=== PATIENT | male | born 1995 ===

== ENCOUNTER 2019-02-28 07:25 | Emergency (ER) | payer OTHER ==
[2019-02-28 07:31] VITALS: BMI 24.2
[2019-02-28 07:32] VITALS: BP 132/84
[2019-02-28] MEDS ORDERED: Sodium Chloride 0.9% 1,000 ML IV STA (08:13)
[2019-02-28 08:37] LABS: BASO % 0.5 % (0.0-2.0); EOS # 0.1 K/uL (0.0-0.7); EOS % 0.8 % (0.0-4.0); HEMOGLOBIN 15.6 g/dL (12.0-18.0); LYMPH # 2.1 K/uL (1.0-4.3); LYMPH % 20.4 % (20.0-40.0); MEAN CELL VOLUME 87.8 fl (80.0-94.0); MEAN CORPUSCULAR HEMOGLOBIN 30.6 pg (27.0-31.0); MEAN CORPUSCULAR HGB CONC 34.9 g/dL (33.0-37.0); MEAN PLATELET VOLUME 8.9 fl (7.2-11.7); MONO # 0.7 K/uL (0.0-0.8); NEUT # 7.2 K/uL (1.8-7.0); NEUT % 71.3 % (50.0-75.0); RBC 5.09 Mil/uL (4.40-5.90); RED CELL DISTRIBUTION WIDTH 13.4 % (11.5-14.5); WHITE BLOOD COUNT 10.1 K/uL (4.8-10.8)
--- NOTE | 2019-02-28 08:46 | ED PDOC ---
HPI: Male Pain Time Seen by Provider: 02/28/19 07:45 Chief Complaint (Nursing): Male Genitourinary Chief Complaint (Provider): Male Genitourinary History Per: Patient History/Exam Limitations: no limitations Onset/Duration Of Symptoms: Days Current Symptoms Are (Timing): Still Present Additional Complaint(s): Patient is a 23 y/o male with no significant PMHx who presents to the ED for evaluation of difficulty urinating. Patient claims his urine was bright red a co uple days ago that immediately resolved. However, patient states he woke up today and was straining and having pain while urinating. Patient described his urine as red but reports there were no stones, clots, or tissue present. Patient also complains of abdominal, flank, and testicular pain. Patient denies penile pain, penile discharge, and sexual activity. Of note, patient indicated he lifted weights a couple days ago, but nothing excessive. PCP: None Past Medical History Reviewed: Historical Data, Nursing Documentation, Vital Signs Vital Signs: Last Vital Signs Temp 97.9 F 02/28/19 07:30 Pulse 74 02/28/19 07:30 Resp 16 02/28/19 07:30 BP 132/84 02/28/19 07:30 Pulse Ox 99 02/28/19 07:30 Primary Care Provider: Non [facility] Provider, - Medical History PMH: No Chronic Diseases - Surgical History Surgical History: No Surg Hx - Family History Family History: States: No Known Family Hx - Allergies Allergies/Adverse Reactions: Allergies Allergy/AdvReac Type Severity Reaction Status Date / Time Penicillins Allergy Intermediate RASH Verified 02/28/19 08:06 Review of Systems ROS Statement: Except As Marked, All Systems Reviewed And Found Negative Gastrointestinal: Positive for: Abdominal Pain Genitourinary Male: Positive for: Dysuria, Hematuria, Scrotal Pain. Negative for: Frequency, Penile Discharge, Penile Pain Musculoskeletal: Positive for: Back Pain (flank) Physical Exam - Reviewed Nursing Documentation Reviewed: Yes Vital Signs Reviewed: Yes - Physical Exam Appears: Positive for: No Acute Distress Head Exam: Positive for: ATRAUMATIC, NORMAL INSPECTION, NORMOCEPHALIC Skin: Positive for: Normal Color, Warm, DRY Eye Exam: Positive for: EOMI, Normal appearance, PERRL Neck: Positive for: Normal, Painless ROM, Supple Cardiovascular/Chest: Positive for: Regular Rate, Rhythm. Negative for: Murmur Respiratory: Positive for: Normal Breath Sounds. Negative for: Respiratory Dis tress Gastrointestinal/Abdominal: Positive for: Normal Exam, Soft. Negative for: Tenderness Back: Positive for: Normal Inspection. Negative for: L CVA Tenderness, R CVA Tenderness, Other (flank tenderness) Extremity: Positive for: Normal ROM. 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 - Laboratory Results Result Diagrams: 02/28/19 08:23 02/28/19 08:23 - ECG O2 Sat by Pulse Oximetry: 99 (RA) Pulse Ox Interpretation: Normal Medical Decision Making Medical Decision Making: Time: 822 Impression: Plan: Will Consider CT Urogram Based on Lab Results BMP CPK CBC IV Fluids UA Reassess Time: 914 Gross RBC and CBK low. No signs of infection or rhabdomyolysis. Will order CT Urogram. Considering renal vs bladder injury vs pathology. Scribe Attestation: Documented by Moses Parsons, acting as a scribe Susi Louie MD. Provider Scribe Attestation: All medical record entries made by the Scribe were at my direction and personally dictated by me. I have reviewed the chart and agree that the record accurately reflects my personal performance of the history, physical exam, medical decision making, and the department course for this patient. I have also personally directed, reviewed, and agree with the discharge instructions and disposition. Disposition - Clinical Impression Clinical Impression: Hematuria - Disposition Referrals: Luis Baker Jr., MD [Staff Provider] - Disposition Time: 10:56 Condition: STABLE Additional Instructions: Increase hydration while symptoms last. Follow up with the urologist within one week for further evaluation. Return to the emergency department if you are unable to urinate or if you develop pain, fever, or other new symptoms. Instructions: Blood in the Urine (Hematuria) in Adults Forms: [employer] ([place]) Print Language: TURKMEN
[2019-02-28 08:50] LABS: BLOOD UREA NITROGEN 8 mg/dl (9-20); CALCIUM 9.3 mg/dL (8.4-10.2); GFR NON-AFRICAN AMERICAN > 60
[2019-02-28 08:52] LABS: URINE BILIRUBIN NEGATIVE (NEGATIVE); URINE BLOOD LARGE (NEGATIVE); URINE CLARITY CLOUDY (Clear); URINE COLOR RED (YELLOW); URINE GLUCOSE (UA) NEG (NEGATIVE); URINE LEUKOCYTE ESTERASE NEG Leu/uL (Negative); URINE PROTEIN 100 mg/dL (NEGATIVE); URINE UROBILINOGEN 0.2-1.0 mg/dL (0.2-1.0)
[2019-02-28] MEDS ORDERED: Iohexol 300 100 ML IJ ONE (09:42)
[2019-02-28] MEDS ORDERED: Sodium Chloride 0.9% 100 ML ONE (09:42)
--- NOTE | 2019-02-28 10:42 | CT ---
Date of service: 02/28/2019 PROCEDURE: CT Abdomen and Pelvis with contrast HISTORY: gross hematuria COMPARISON: None. TECHNIQUE: Following the intravenous administration of iodinated contrast material, a CT examination of the abdomen and pelvis was performed from the domes of the diaphragms to the symphysis pubis with reformatted datasets provided in axial, sagittal and coronal planes. Oral contrast was not administered as per referring physician request. Contrast dose: Omnipaque 300, 98 cc Radiation dose: Total exam DLP = 405.74 mGy-cm. This CT exam was performed using one or more of the following dose reduction techniques: Automated exposure control, adjustment of the mA and/or kV according to patient size, and/or use of iterative reconstruction technique. FINDINGS: LOWER THORAX: Unremarkable. LIVER: Moderately diminished attenuation is appreciate diffusely throughout the liver, compatible with hepatic steatosis. No gross lesion or ductal dilatation. GALLBLADDER AND BILE DUCTS: Unremarkable. PANCREAS: Unremarkable. No gross lesion or ductal dilatation. SPLEEN: Unremarkable. ADRENALS: Unremarkable. No mass. KIDNEYS AND URETERS: Unremarkable. No hydronephrosis. No solid mass. VASCULATURE: Unremarkable. No aortic aneurysm. No aortic atherosclerotic calcification or mural plaque present. BOWEL: Unremarkable. No obstruction. No gross mural thickening. Limited sigmoid diverticulosis without diverticulitis. APPENDIX: Normal appendix. PERITONEUM: Unremarkable. No free fluid. No free air. LYMPH NODES: Unremarkable. No enlarged lymph nodes. BLADDER: Limited hyperdense layering material is seen at the dependent urinary bladder pattern with clinical history of hematuria. No prominent radiodense urolithiasis in the urinary bladder. No definitive mural thickening exclusive of this one area, in remaining urinary bladder. REPRODUCTIVE: Unremarkable. BONES: No acute fracture. OTHER FINDINGS: None. IMPRESSION: 1. Nonspecific limited hematuria layering the dependent urinary bladder with remainder of the urinary bladder unremarkable appearing. No suspicious renal or ureter for findings bilaterally. 2. Minimal sigmoid diverticulosis without diverticulitis.
[2019-02-28 11:44] VITALS: PULSE 70; RESP 18; TEMP 98
[2019-02-28 18:12] VITALS: O2SAT 99
== END 2019-02-28 11:41 | disposition home or self-care (01) ==
LOC: H.ER 07:25
DX: R31.9 Hematuria, unspecified (principal)
CPT/HCPCS: 74177; 80048; 81003; 82550; 85025; 96360; 99283; J7030; Q9967